=== PATIENT | male | born 1985 | race Caucasian/White ===

== ENCOUNTER 2020-06-18 10:20 | Emergency (ER) | payer BC, SELFPAY ==
[2020-06-18 10:21] VITALS: BP 154/87; PULSE 100; RESP 16; TEMP 36.1; O2SAT 97; BMI 39.5
--- NOTE | 2020-06-18 10:58 | EKG12_ITS ---
Test Reason : UPPER EXTREMETY Blood Pressure : / mmHG Vent. Rate : 086 BPM Atrial Rate : 086 BPM P-R Int : 168 ms QRS Dur : 116 ms QT Int : 376 ms P-R-T Axes : 049 038 040 degrees QTc Int : 449 ms Normal sinus rhythm Incomplete right bundle branch block Borderline ECG Confirmed by JEFF YEE, DANIEL ([id number]), editorial writer DELIO BENNETT ([id number]) on 06/20/2020 9:28:26 AM Referred By: ISABEL Confirmed By:KORY AGUILAR MD
--- NOTE | 2020-06-18 11:00 | CT_ITS ---
STUDY: CTA CHEST AND CTA ABDOMEN/PELVIS WITH CONTRAST REASON FOR EXAM: Male, 34 years old. Dissection study, back pain, left arm numbness, RADIATION DOSAGE (If Supplied By Facility): CTDIvol = ( 17.435 ) mGy, DLP = ( 1517.24 ) mGycm TECHNIQUE: The examination was performed with the intravenous administration of IV 100mL Isovue-300. Post-processing of the angiographic images was performed, with multiplanar reformation and 3D reconstruction. Individualized dose optimization techniques were used for this CT. COMPARISON: No relevant priors. FINDINGS: CTA Chest Benign appearing bilateral axillary lymph nodes. Normal enhancement of the main pulmonary artery and right and left pulmonary arteries. Normal enhancement of the bilateral peripheral pulmonary arteries. There is no demonstrated pulmonary embolism. Normal thoracic aorta and visualized great vessels. There is no demonstrated aortic dissection. Normal heart and pericardium. There are visualized mediastinal lymph nodes, which are within normal size limits, and with normal morphology. Normal hilar regions. Normal visualized trachea and bronchi. The lungs are well expanded. Normal pulmonary parenchyma. Normal pleura. Normal chest wall structures. Normal osseous structures. Normal visualized upper abdomen. CT Abdomen T Pelvis The visualized lung bases are unremarkable. The visualized portions of the heart are within normal limits. There is decreased attenuation of the liver consistent with steatosis. Mild hepatomegaly. Normal gallbladder and extrahepatic biliary system. Normal spleen. Normal pancreas. Normal bilateral adrenal glands. Normal right kidney. Normal left kidney. Normal visualized stomach. Normal small intestine. There are multiple colonic diverticula consistent with diverticulosis. The appendix is visualized and appears normal. Normal abdominal aorta. Normal inferior vena cava. Normal retroperitoneum. Normal urinary bladder. There is a small umbilical hernia containing fat. Normal osseous structures. CT/CTA Chst, Abd, Pel W and/or WO IMPRESSION: No evidence of aortic dissection. Mild hepatomegaly and diffuse fatty infiltration of the liver. Sigmoid diverticulosis. Small umbilical hernia containing fat. Electronically Signed: Adalid Becerra MD at 12:26 EDT , Service support ,
--- NOTE | 2020-06-18 11:03 | NURSING ---
NO OLD EKGS
--- NOTE | 2020-06-18 11:14 | ED.VIS.GEN ---
History of Present Illness Chief Complaint: Upper Extremity Injury Informant: Patient Onset: Today Context: Sudden Onset Narrative: Patient is a 34-year-old male with history of rny-irmpkwn-iglwqqacd diabetes mellitus and obesity presenting with left arm pain and numbness. Patient states he woke up to go to work at 3 AM, which is a normal time for him, and he had numbness/paresthesias of his left arm that lasted for about 3 hours. The numbness went away but then he continued to have a gnawing painful sensation of his left arm. He denies any swelling of his arm or difficulty moving it. He also has some associated pain between his shoulder blades. He states that is mild. While at work he started to have burning/gnawing sensation of his bilateral calfs. He denies any weakness of his legs. He states he is never had anything like this before. Initially thought he just slept funny but notes he slept on his left side which he always does. He denies any chest pain but notes he has some slight tightness. He denies any difficulty breathing or shortness of breath. No GI or symptoms. No other complaints at this time. Past Medical History - Allergies and Home Meds Allergies/Adverse Reactions: Allergies No Known Allergies Allergy (Verified 06/18/20 10:23) Primary Care Physician: Shakira Peterson MD [NON-STAFF] - Past Medical History: - - DM Surgical History: noncontributory Smoking Status: Never smoker Review of Systems General: Reports: Malaise. Denies: Chills, Fever, Sweats Eyes: Denies: Visual changes - bilaterally, Diplopia ENT: Denies: Rhinorrhea, Sore throat Cardiovascular: Denies: Chest pain, Palpitations Respiratory: Denies: Dyspnea, Cough, Dyspnea on exertion Gastrointestinal: Denies: Abdominal pain, Nausea, Vomiting, Diarrhea, Melena, Hematochezia Genitourinary: Denies: Dysuria, Hematuria, Frequency Musculoskeletal: Reports: Extremity Pain - left arm, lower legs . Denies: Back pain Skin: Denies: Rash, Wounds Neurological: Reports: Parasthesia - left arm . Denies: Headache, Weakness, Numbness Physical Exam Vital Signs/Narrative: Vital Signs Temp Pulse Resp BP Pulse Ox 06/18/20 10:21 97 F L 100 16 154/87 H 97 Inital Vital Signs reviewed: Yes General: Well nourished, Well developed, No Acute Distress Head: Normocephalic, Atraumatic Eyes: Perrl, EOMI ENT: Moist mucous membranes, No rhinorrhea Neck: Supple, Nontender Cardiovascular: Regular rate, Regular rhythm, No murmurs, - - 2+ distal radial pulses, 2+ left DP, 1+ right DP Respiratory: No distress, CTA bilaterally, Chest nontender Abdomen: Soft, Nontender, Nondistended, Normal bowel sounds Back: Nontender, Normal Inspection Extremities: Nontender, No edema Skin: Normal color, No rash Neurological: Alert, Oriented x3, Cranial nerves II-XII grossly intact, Normal Strength, Normal Sensation. Negative for: Parasthesia, Weakness Psychological: Normal affect, Normal Mood Diagnostic/Tx/Re-eval Clinical Impression(s) from Imaging Studies Chest/Abdomen/Pelvis CTA 06/18/20 11:00 IMPRESSION: No evidence of aortic dissection. Mild hepatomegaly and diffuse fatty infiltration of the liver. Sigmoid diverticulosis. Small umbilical hernia containing fat. Electronically Signed: Adalid Becerra MD at 12:26 EDT , Service support , Laboratory Data 06/18/20 06/18/20 06/18/20 11:00 11:00 11:00 WBC 6.6 RBC 5.78 Hgb 15.3 Hct 46.1 MCV 79.8 L MCH 26.5 L MCHC 33.2 RDW Std Deviation 38.2 RDW Coeff of Amalia 13.6 Plt Count 215 MPV 11.1 Immature Gran % (Auto) 0.500 Neut % (Auto) 53.7 Lymph % (Auto) 34.2 [place] % (Auto) 7.2 Eos % (Auto) 3.9 Baso % (Auto) 0.5 Absolute Neuts (auto) 3.6 Absolute Lymphs (auto) 2.27 Nucleated RBC % 0 PT Cancelled INR Cancelled APTT Cancelled Sodium Cancelled Potassium Cancelled Chloride Cancelled Carbon Dioxide Cancelled Anion Gap Cancelled BUN Cancelled Creatinine Cancelled Estim Creat Clear Calc Cancelled Est GFR (MDRD) Af Amer Cancelled Est GFR (MDRD) Non-Af Cancelled BUN/Creatinine Ratio Cancelled Glucose Cancelled Calcium Cancelled Magnesium Total Bilirubin AST ALT Alkaline Phosphatase Troponin I Cancelled Total Protein Albumin Globulin Albumin/Globulin Ratio 06/18/20 06/18/20 06/18/20 11:35 11:35 11:35 WBC RBC Hgb Hct MCV MCH MCHC RDW Std Deviation RDW Coeff of Amalia Plt Count MPV Immature Gran % (Auto) Neut % (Auto) Lymph % (Auto) [place] % (Auto) Eos % (Auto) Baso % (Auto) Absolute Neuts (auto) Absolute Lymphs (auto) Nucleated RBC % PT 13.3 INR 1.1 APTT 27.6 Sodium 141 Potassium 2.8 L Chloride 112 H Carbon Dioxide 23.0 Anion Gap 6 BUN 12 Creatinine 0.46 L Estim Creat Clear Calc 231.43 Est GFR (MDRD) Af Amer 267 Est GFR (MDRD) Non-Af 221 BUN/Creatinine Ratio 26.1 H Glucose 239 H Calcium 6.6 L Magnesium 1.4 L Total Bilirubin 0.20 AST 21 ALT 55 Alkaline Phosphatase 52 Troponin I < 0.015 Total Protein 5.5 L Albumin 2.5 L Globulin 3.0 Albumin/Globulin Ratio 0.8 L - Rhythm Strip Rhythm Strip: Sinus Rhythm Rate: 86 Ectopy: None - EKG Initial EKG Interpretation: Sinus Rhythm, RBBB, - - Normal sinus rhythm at a rate of 86 Normal axis Normal intervals Normal ST segments - Medical Decision Making Patient is evaluated for pain and paresthesias of his left upper extremity and then pain of bilateral lower legs from the calf and down. He does have some chest tightness and back pressure. The symptoms been present for over 6 hours and constant. Patient's vital signs are significant for mild hypertension but otherwise he is hemodynamically stable. On exam patient does have an equal distal pulses. Given his odd neurologic/pain symptoms of his extremities and back pain a dissection study is ordered. This is negative. Patient's work-up is remarkable only for hypokalemia of 2.8. His magnesium is mildly low at 1.6. Patient is given potassium supplementation in the ER IV and p.o. I suspect that his low potassium levels was causing his symptoms. Patient is not on any medications that can cause hypokalemia so I am not sure why he has this. He is encouraged to eat a high potassium diet over the next few days and follow-up with his primary care doctor for recheck. Patient is counseled on signs and symptoms requiring return to the emergency room. Patient verbalizes agreement and understand this plan. Patient discharged home in stable and improved condition. Patient patient states he is feeling much better and his symptoms have resolved. ED Disposition - Plan for ED Patient: Disposition: Home or Assisted Living Diagnosis: Hypokalemia, Arm pain, Myalgia Instructions: ED Pain, Acute, Uncertain Cause, ED Hypokalemia Referrals: Shakira Peterson MD [NON-STAFF] -
[2020-06-18] MEDS: 0.9% Normal Saline 1,000 ML 150 ML IV (11:16)
[2020-06-18 11:17] LABS: Absolute Lymphocyte Count 2.27 X10^3/uL (0.83-4.51); Absolute Neutrophil Count 3.6 X10^3/uL (2.0-7.7); Basophil# 0.03 X10^3/uL; Basophil% 0.5 % (0-1); Eosinophil# 0.26 X10^3/uL; Eosinophils% 3.9 % (0-5); Hematocrit 46.1 % (40-54); Hemoglobin 15.3 g/dL (13.0-16.5); Lymphocyte # 2.27 X10^3/ul (4.0); Lymphocyte % 34.2 % (19-41); Mean Corp Hgb Conc 33.2 g/dL (32-36); Mean Corpuscular Hgb 26.5 pg (27.0-32.0); Mean Corpuscular Volume 79.8 fL (80-94); Mean Platelet Vol. 11.1 fl (6.2-12.0); Monocyte# 0.48 X10^3/uL; Monocyte% 7.2 % (0-10); NRBC Flagged by Analyzer 0 % (0-5); Neutrophil # 3.56 X10^3/uL (2.7-7.7); Neutrophil % 53.7 % (47-70); Platelet Count 215 K/mm3 (150-450); RBC Distribution Width CV 13.6 % (11.6-14.6); RBC Distribution Width SD 38.2 fl (35.1-43.9); Red Blood Count 5.78 M/mm3 (4.6-6.2); White Blood Count 6.6 K/mm3 (4.4-11.0)
--- NOTE | 2020-06-18 11:21 | NURSING ---
PER LAB, CHEMISTRIES AND PT, PTT HEMOLIZED. THEY WILL REPRINT LABELS
[2020-06-18 11:59] LABS: International Normalized Ratio 1.1; Prothrombin Time (Protime)PT. 13.3 SECONDS (11.7-14.9)
[2020-06-18 12:00] LABS: Partial Thromboplast Time 27.6 Seconds (24.1-36.2)
[2020-06-18 12:11] LABS: ALB/GLOB Ratio 0.8 RATIO (0.9-2.4); AST(SGOT) 21 U/L (15-37); Alanine Aminotransfer ALT/SGPT 55 U/L (16-61); Albumin, Serum 2.5 g/dL (3.2-5.0); Alkaline Phosphatase 52 U/L (45-117); Anion Gap 6 (5-15); BUN 12 mg/dL (7-18); BUN/Creat Ratio 26.1 RATIO (10-20); Calcium,Total 6.6 mg/dL (8.5-10.1); Chloride 112 mmol/L (98-107); Creatinine, Serum 0.46 mg/dL (0.70-1.30); EST Glomerular Filtration Rate 221 mL/min (>60); Est Glom Filt Rate - Afr Amer 267 mL/min (>60); Estimated Creatinine Clearance 231.43 ml/min; Glucose 239 mg/dL (74-106); Potassium 2.8 mmol/L (3.5-5.1); Protein, Total 5.5 g/dL (6.4-8.2); Sodium Level 141 mmol/L (136-145)
[2020-06-18] MEDS: Potassium Chloride Oral Tablet 20 MEQ 40 MEQ PO (12:59)
[2020-06-18 13:00] VITALS: BP 119/66; PULSE 88; RESP 27; O2SAT 98
[2020-06-18] MEDS: Potassium Chloride 10mEq/100mL 10 MEQ/100 ML IV.SOLN. 100 MEQ IV BOLUS ×2 (13:02→14:04)
[2020-06-18 13:42] LABS: Magnesium 1.4 mg/dL (1.6-2.6)
[2020-06-18 13:43] VITALS: BP 107/64; PULSE 71; RESP 18
[2020-06-18 15:15] VITALS: BP 111/70; PULSE 74; RESP 18
== END 2020-06-18 15:20 | disposition home or self-care (01) ==
PROVIDERS: Emergency Provider Emergency Medicine; PCP Physician Assistant
DX: E87.6 Hypokalemia (principal); M79.602 Pain in left arm; M79.10 Myalgia, unspecified site; E11.9 Type 2 diabetes mellitus without complications; E66.9 Obesity, unspecified
CPT/HCPCS: 71275; 74174; 80053; 83735; 84484; 85025; 85610; 85730; 93005; 96365; 96366; 99285; Q9967; A4216

== ENCOUNTER → 2021-09-29 | Outpatient (CLI) | payer BC, SELFPAY ==
[2021-09-29 16:35] LABS: Alkaline Phosphatase 73 U/L (45-117); Anion Gap 8 (5-15); BUN 17 mg/dL (7-18); BUN/Creat Ratio 19.6 RATIO (10-20); Calcium,Total 9.1 mg/dL (8.5-10.1); Chloride 102 mmol/L (98-107); Creatinine, Serum 0.87 mg/dL (0.70-1.30); EST Glomerular Filtration Rate 105 mL/min (>60); Est Glom Filt Rate - Afr Amer 128 mL/min (>60); Glucose 157 mg/dL (74-106); Magnesium 2.2 mg/dL (1.6-2.6); Potassium 3.8 mmol/L (3.5-5.1); Sodium Level 137 mmol/L (136-145)
== END | disposition home or self-care (01) ==
LOC: LAB 14:52
PROVIDERS: PCP Physician Assistant; Referring Provider Surgery; Visit Provider Surgery
DX: R89.9 Unspecified abnormal finding in specimens from other organs, systems and tissues (principal); R10.9 Unspecified abdominal pain; R19.7 Diarrhea, unspecified; K58.9 Irritable bowel syndrome, unspecified; K92.1 Melena
CPT/HCPCS: 36415; 80048; 82274; 83735; 84075; 87177; 87209; 87493; 87506

== ENCOUNTER → 2021-09-30 | Outpatient (CLI) | payer BC, SELFPAY ==
--- NOTE | 2021-09-30 16:48 | CT_ITS ---
STUDY: CT Abdomen And Pelvis W/ Contrast Injection 09/30/2021 6:12 PM REASON FOR EXAM: Male, 35 years old. ABDOMINAL PAIN Abdominal pain, blood in stool TECHNIQUE: Transaxial images were obtained with oral contrast, and with Oral and amp; IV Readi-CAT and amp; 100mL Isovue-370 intravenous contrast. Individualized dose optimization techniques were used for this CT. COMPARISON: 06.18.20 FINDINGS: The visualized lung bases are unremarkable. The visualized portions of the heart are within normal limits. Unremarkable liver. Unremarkable gallbladder and extrahepatic biliary system. Unremarkable spleen. Unremarkable pancreas. Unremarkable bilateral adrenal glands. No acute findings of the right kidney. No acute findings of the left kidney. Unremarkable visualized stomach. Unremarkable small intestine. Unremarkable colon. The appendix is visualized and appears unremarkable. There are no acute findings of the abdominal aorta. Unremarkable inferior vena cava. Subcentimeter mesenteric lymph nodes. Unremarkable urinary bladder. There are prostatic calcifications. Mild bilateral inguinal adenopathy. This is nonspecific. There is an umbilical hernia containing fat. There is a ventral hernia containing fat. There are diffuse degenerative changes of the visualized lumbar spine. CT/Abdomen/Pelvis WITH Contrast IMPRESSION: (NOT LISTED IN ORDER OF SIGNIFICANCE) Mild bilateral inguinal adenopathy. This is nonspecific. There is an umbilical hernia containing fat. There is a ventral hernia containing fat. Other findings as above. Electronically Signed: Iván Bee MD at 18:15 EDT ,
[2021-09-30 17:05] LABS: CREATININE FINGERSTICK < 0.9 mg/dL (0.70-1.30); EGFR FINGERSTICK > 60.0000 mL/min (>60)
== END | disposition home or self-care (01) ==
LOC: CT 16:39
PROVIDERS: PCP Physician Assistant; Referring Provider Surgery; Visit Provider Surgery
DX: K42.9 Umbilical hernia without obstruction or gangrene (principal); K43.9 Ventral hernia without obstruction or gangrene; K92.1 Melena; R10.9 Unspecified abdominal pain; R19.7 Diarrhea, unspecified
CPT/HCPCS: 74177; Q9967